=== PATIENT | male | born 1990 | race Asian ===

== ENCOUNTER 2017-12-09 00:44 | Observation (INO) | payer OTHER ==
--- NOTE | 2017-12-09 01:03 | EDPHY ---
H & P Stated Complaint: ABD pain. Time Seen by Provider: 12/09/17 01:05 HPI/ROS: HPI CHIEF COMPLAINT: Abdominal pain HISTORY OF PRESENT ILLNESS: Patient 27-year-old male, is otherwise healthy without any significant medical history denies having any significant abdominal history, presents emergency room nausea but no vomiting and epigastric abdominal pain. Patient reports a burning sensation in his epigastric region. Does not go to his back he has associated nausea with it. He states he initially felt around lunch today after he ate [employer]. He states however he did not feel that bad today. Around 2-3 hours ago developed epigastric worsening discomfort. The pain has gotten intense over the past 2 hr. He denies any lower abdominal pain. Denies chest pain or shortness of breath. The pain does not radiate. He is focally tender in the epigastric region on exam. 8/10 pain Past Medical History: Denies medical history Past Surgical History: Denies surgical history Social History: Denies drugs alcohol tobacco products Family History: Noncontributory ROS REVIEW OF SYSTEMS: A comprehensive 10 point review of systems is otherwise negative aside from elements mentioned in the history of present illness. Exam Constitutional appears uncomfortable, triage nursing summary reviewed, vital signs reviewed, awake/alert. Eyes normal conjunctivae and sclera, EOMI, PERRLA. HENT normal inspection, atraumatic, moist mucus membranes, no epistaxis, neck supple/ no meningismus, no raccoon eyes. Respiratory clear to auscultation bilaterally, normal breath sounds, no respiratory distress, no wheezing. Cardiovascular rate normal, regular rhythm, no murmur, no edema, distal pulses normal. Gastrointestinal tender palpation epigastric region, no rebound, no guarding, normal bowel sounds, no distension, no pulsatile mass. Genitourinary no CVA tenderness. Musculoskeletal no midline vertebral tenderness, full range of motion, no calf swelling, no tenderness of extremities, no meningismus, good pulses, neurovascularly intact. Skin pink, warm, & dry, no rash, skin atraumatic. Neurologic awake, alert and oriented x 3, AAOx3, moves all 4 extremities equally, motor intact, sensory intact, CN II-XII intact, normal cerebellar, normal vision, normal speech. Psychiatric normal mood/affect. Heme/Lymph/Immune no lymphadenopathy. Differential diagnosis includes but is not limited to and in no particular order : Acute pancreatitis, Bowel obstruction, appendicitis, gallbladder disease, diverticulitis, colitis, enteritis, perforated viscus, gastritis, GERD, esophagitis, urinary tract infection, pyelonephritis, kidney stones Medical Decision Making: Plan for this patient IV establishment with IV fluid bolus, IV Dilaudid for pain control, IV Zofran for nausea, check lipase, liver enzymes, blood work, CT scan abdomen pelvis with IV contrast re-evaluate. Re-evaluation: EKG interpretation by me on record in [employer] system. Impression time of EKG 1:12 a.m. Sinus rhythm rate of 94. No acute ischemic change. 0213: CT scan abdomen pelvis with IV contrast called to me by Dr. Borges. Negative for acute inflammatory process. Does have a distended gallbladder but no gallstones. No gallbladder wall thickening on CT. 0214: I did re-evaluate him at this time. Abdomen remained soft. He does tell me that he feels better. He has not any vomiting here. Still has some epigastric discomfort. Patient's EKG is nonischemic. Blood work is reassuring with a normal lipase. Somewhat hold slightly elevated LFTs. CT scan is unrevealing. Will give a GI cocktail and re-evaluate. 0324: Did re-evaluate him he still has ongoing upper abdominal pain. Troponin negative. I have ordered an ultrasound of his right upper quadrant to further evaluate is distended gallbladder on CT. GI cocktail did not improve his pain. I have ordered mg IV Dilaudid. Will re-evaluate. Ultrasound pending. Ultrasound of the gallbladder is unremarkable called to me by Dr. Borges. No evidence of acute cholecystitis. I did reexamine him he still has epigastric right upper quadrant abdominal pain. I have offered him admission and he would like to be admitted the hospital for further pain control further evaluation of his abdominal pain. 0500: I spoke with the hospitalist service Dr. Rosa, who agrees to admit this patient for tonight of observation, ongoing abdominal pain IV fluids. Patient did not for to go home wanted to stay in the hospital for ongoing fluids nausea pain control. I do not have a great explanation for his abdominal pain. I do question if he has cholecystitis however the CT scan and ultrasound are reassuring. He is afebrile. His blood work has been reviewed he does have slightly elevated LFTs and a slight white count. Plan will be for observation pain control nausea control and IV fluids. Source: Patient - Personal History Current Tetanus/Diphtheria Vaccine: Unsure Current Tetanus Diphtheria and Acellular Pertussis (TDAP): Unsure - Medical/Surgical History Hx Asthma: No Hx Chronic Respiratory Disease: No Hx Diabetes: No Hx Cardiac Disease: No Hx Renal Disease: No Hx Cirrhosis: No Hx Alcoholism: No Hx HIV/AIDS: No Hx Splenectomy or Spleen Trauma: No Other PMH: Denies - Social History Smoking Status: Never smoked Constitutional: Initial Vital Signs Temperature (C) 36.8 C 12/09/17 00:47 Heart Rate 104 H 12/09/17 00:47 Respiratory Rate 18 12/09/17 00:47 Blood Pressure 160/104 H 12/09/17 00:47 O2 Sat (%) 92 12/09/17 00:47 O2 Delivery Mode Room Air O2 (L/minute) 2 Allergies/Adverse Reactions: No Known Allergies Allergy (Unverified 12/09/17 00:51) Home Medications: Medication Instructions Recorded NK [No Known Home Meds] 12/09/17 Medical Decision Making - Data Points Laboratory Results: Laboratory Results 12/09/17 01:17 12/09/17 01:17 12/09/17 12/09/17 12/09/17 01:17 01:17 01:17 WBC RBC Hgb Hct MCV MCH MCHC RDW Plt Count MPV Neut % (Auto) Lymph % (Auto) [place] % (Auto) Eos % (Auto) Baso % (Auto) Nucleat RBC Rel Count Absolute Neuts (auto) Absolute Lymphs (auto) Absolute Monos (auto) Absolute Eos (auto) Absolute Basos (auto) Absolute Nucleated RBC Immature Gran % Immature Gran # PT 14.3 SEC SEC (12.0-15.0) INR 1.09 (0.83-1.16) APTT 30.8 SEC SEC (23.0-38.0) Sodium 142 mEq/L mEq/L (135-145) Potassium 3.9 mEq/L mEq/L (3.5-5.2) Chloride 101 mEq/L mEq/L (97-110) Carbon Dioxide 25 mEq/l mEq/l (22-31) Anion Gap 16 mEq/L mEq/L (8-16) BUN 12 mg/dL mg/dL (7-23) Creatinine 0.9 mg/dL mg/dL (0.7-1.3) Estimated GFR > 60 Glucose 138 mg/dL H mg/dL (70-100) Calcium 9.5 mg/dL mg/dL (8.5-10.4) Total Bilirubin 1.3 mg/dL mg/dL (0.1-1.4) Conjugated Bilirubin 0.4 mg/dL mg/dL (0.0-0.5) Unconjugated Bilirubin 0.9 mg/dL mg/dL (0.0-1.1) AST 76 IU/L H IU/L (17-59) ALT 183 IU/L H IU/L (21-72) Alkaline Phosphatase 62 IU/L IU/L (38-126) Troponin I < 0.012 ng/mL ng/mL (0.000-0.034) Total Protein 7.8 g/dL g/dL (6.3-8.2) Albumin 4.4 g/dL g/dL (3.5-5.0) Lipase 80 IU/L IU/L (23-300) 12/09/17 01:17 WBC 9.82 10^3/uL H 10^3/uL (3.80-9.50) RBC 5.33 10^6/uL 10^6/uL (4.40-6.38) Hgb 16.5 g/dL g/dL (13.7-17.5) Hct 45.9 % % (40.0-51.0) MCV 86.1 fL fL (81.5-99.8) MCH 31.0 pg pg (27.9-34.1) MCHC 35.9 g/dL g/dL (32.4-36.7) RDW 11.9 % % (11.5-15.2) Plt Count 254 10^3/uL 10^3/uL (150-400) MPV 8.4 fL L fL (8.7-11.7) Neut % (Auto) 71.7 % % (39.3-74.2) Lymph % (Auto) 20.9 % % (15.0-45.0) [place] % (Auto) 5.5 % % (4.5-13.0) Eos % (Auto) 0.8 % % (0.6-7.6) Baso % (Auto) 0.7 % % (0.3-1.7) Nucleat RBC Rel Count 0.0 % % (0.0-0.2) Absolute Neuts (auto) 7.04 10^3/uL H 10^3/uL (1.70-6.50) Absolute Lymphs (auto) 2.05 10^3/uL 10^3/uL (1.00-3.00) Absolute Monos (auto) 0.54 10^3/uL 10^3/uL (0.30-0.80) Absolute Eos (auto) 0.08 10^3/uL 10^3/uL (0.03-0.40) Absolute Basos (auto) 0.07 10^3/uL 10^3/uL (0.02-0.10) Absolute Nucleated RBC 0.00 10^3/uL 10^3/uL (0-0.01) Immature Gran % 0.4 % % (0.0-1.1) Immature Gran # 0.04 10^3/uL 10^3/uL (0.00-0.10) PT INR APTT Sodium Potassium Chloride Carbon Dioxide Anion Gap BUN Creatinine Estimated GFR Glucose Calcium Total Bilirubin Conjugated Bilirubin Unconjugated Bilirubin AST ALT Alkaline Phosphatase Troponin I Total Protein Albumin Lipase Medications Given: Discontinued Medications Al Hydroxide/Mg Hydroxide (Maalox Susp) 30 ml PO ONCE ONE Stop: 12/09/17 02:16 Last Admin: 12/09/17 02:46 Dose: 30 ml Hydromorphone HCl (Dilaudid) 1 mg IVP EDNOW ONE Stop: 12/09/17 01:08 Last Admin: 12/09/17 01:20 Dose: 1 mg Hydromorphone HCl (Dilaudid) 1 mg IVP EDNOW ONE Stop: 12/09/17 03:24 Last Admin: 12/09/17 03:26 Dose: 1 mg Hydromorphone HCl (Dilaudid) 1 mg IVP EDNOW ONE Stop: 12/09/17 03:24 Last Admin: 12/09/17 03:26 Dose: Not Given Hyoscyamine Sulfate (Levsin, Hyomax-Sl) 0.25 mg PO ONCE ONE Stop: 12/09/17 02:16 Last Admin: 12/09/17 02:45 Dose: 0.25 mg Sodium Chloride (Ns) 1,000 mls @ 0 mls/hr IV EDNOW ONE; Wide Open PRN Reason: Protocol Stop: 12/09/17 01:08 Last Admin: 12/09/17 01:19 Dose: 1,000 mls Lidocaine (Lidocaine 2% Viscous) 15 ml PO ONCE ONE Stop: 12/09/17 02:16 Last Admin: 12/09/17 02:46 Dose: 15 ml Ondansetron HCl (Zofran) 4 mg IVP EDNOW ONE Stop: 12/09/17 01:08 Last Admin: 12/09/17 01:20 Dose: 4 mg Departure - Departure Disposition: [facility] Inpatient Acute Clinical Impression: Abdominal pain Qualifiers: Abdominal location: right upper quadrant Qualified Code(s): R10.11 - Right upper quadrant pain Condition: Fair Referrals: NONE *PRIMARY CARE P,. [Primary Care Provider] - As per Instructions
[2017-12-09] MEDS ORDERED: NS 1,000 ML IV ONE ×2 (01:07→05:00)
[2017-12-09] MEDS ORDERED: ONDANSETRON 4 MG/2 ML VIAL IVP ONE (01:07)
[2017-12-09] MEDS ORDERED: HYDROmorphONE/DILAUDID 1 MG/ML INJ IVP ONE ×3 (01:07→03:23)
--- NOTE | 2017-12-09 01:13 | CPEKG ---
Heart Rate: 94 RR Interval: 638 P-R Interval: 196 QRSD Interval: 90 QT Interval: 344 QTC Interval: 431 P [place]: 12 QRS [place]: 82 T Wave [place]: 13 EKG Severity - NORMAL ECG - EKG Impression: SINUS RHYTHM Electronically Signed By: Logan Meng 09-Dec-2017 06:16:49
[2017-12-09 01:29] LABS: PLATELET COUNT 254 10^3/uL (150-400)
[2017-12-09 01:38] LABS: INR 1.09 (0.83-1.16); PROTIME(PATIENT) 14.3 SEC (12.0-15.0)
[2017-12-09] MEDS ORDERED: IOPAMIDOL (ISOVUE-300) 100 ML BTL ONE (01:46)
[2017-12-09] MEDS ORDERED: LIDOCAINE 2% VISCOUS 15 ML UDCUP PO ONE (02:15)
[2017-12-09] MEDS ORDERED: MAG HYDROX/AL HYDROX/SIMETH 30 ML UDCUP PO ONE (02:15)
[2017-12-09] MEDS ORDERED: HYOSCYAMINE SULFATE 0.125 MG TAB PO ONE (02:15)
[2017-12-09] MEDS ORDERED: LORazepam 2 MG/ML INJ IVP PRN (05:41)
[2017-12-09] MEDS ORDERED: ACETAMINOPHEN 325 MG TAB PO PRN (05:41)
[2017-12-09] MEDS ORDERED: HYDROmorphONE/DILAUDID 1 MG/ML INJ IVP PRN (05:41)
[2017-12-09] MEDS ORDERED: ONDANSETRON 4 MG/2 ML VIAL IVP PRN (05:41)
[2017-12-09] MEDS ORDERED: PANTOPRAZOLE SODIUM 40 MG VIAL IVP ONE (05:45)
[2017-12-09 06:24] VITALS: RESP 18
--- NOTE | 2017-12-09 06:46 | GHP ---
[f rep st] HISTORY AND PHYSICAL DATE OF ADMISSION: 12/09/2017 SOURCE: Patient provides history, appears reliable. Case discussed with ED provider. EMR was mon. CHIEF COMPLAINT: Abdominal pain. HISTORY OF PRESENT ILLNESS: This very pleasant, 27-year-old gentleman with no significant past medic al history presents to the emergency department today with complaints of several hours of nausea and epigastric pain. Patient reports that approximately lunchtime yesterday he had a fatty fast food niraj l, and since that time has had some upset stomach. He subsequently developed some nausea and epigast boni pain which he reports is sharp, constant, and worse with movement or food. Patient has had only limited amounts of club soda and tea since onset of his pain. He has not had any solid food since th at time. He did try to take some Pepto-Bismol at home which did not improve his symptoms. Patient w as increasingly uncomfortable, and so presented to the emergency department for further evaluation. REVIEW OF SYSTEMS: Negative, except as noted above. ALLERGIES: No known drug allergies. MEDICATIONS: None on a regular basis. PAST MEDICAL HISTORY: Patient denies. PAST SURGICAL HISTORY: Negative. FAMILY HISTORY: Patient denies any known family history of gallbladder disease, hypertension, diabet es, CAD. SOCIAL HISTORY: Patient does not smoke, drink, or do drugs. His significant other at bedside. CODE STATUS: Full. PHYSICAL EXAMINATION: VITAL SIGNS: Upon arrival to the ED, blood pressure 160/104, heart rate is 10 4, respiratory rate 18, O2 sat 92% on room air with a temperature 36.8. Vitals currently: Blood pre ssure 136/81, heart rate is 83, respiratory rate 18, pulse ox 96% on room air with temperature 36.6. GENERAL: Patient in no acute distress, but does appear uncomfortable, and lies quite still on the g urney. His significant other bedside. HEAD: Normocephalic, atraumatic. EYES: Extraocular muscles are intact. Pupils equal, round, slightly decreased reactivity to light bilaterally, and symmetric. No scleral icterus or conjunctival injection. ENT: Mucous membranes appear slightly dry. Dentiti on intact. No oropharyngeal erythema or exudates. NECK: Supple. Trachea midline. CV: Regular ra te and rhythm. No murmurs, rubs, or gallops appreciated. RESPIRATORY: Lungs are clear to auscultat ion bilaterally. No wheezes, rales, or rhonchi appreciated. ABDOMEN: Obese, soft. Patient with ge neralized tenderness to palpation and more acutely in the epigastric region. Has a negative Inman s ign. ABDOMEN: Slightly distended, but soft. Hypoactive bowel sounds. : No suprapubic tendernes s to palpation. No Warner catheter in place. EXTREMITIES: Patient without any cyanosis, clubbing, o r edema appreciated. Patient with 2+ pedal pulses. NEURO: Grossly nonfocal. No facial drooping. Moves all extremities. PSYCHIATRIC: Thought process, content, and questions are all appropriate. P atient awake, alert, and oriented x4. LABORATORY STUDIES: WBC is 9.82, H and H 16.5 and 45.9, MCV of 86.1, platelet count is 254, no bands . PT 14.3, INR 1.09, PTT is 30.8. Sodium 142, potassium is 3.9, chloride 101, CO2 is 25, anion gap 16, BUN 12, creatinine 0.9, GFR greater than 60, glucose 138, calcium 9.5, total bili is 1.3, ALT is 183 , AST 76, alk phos is 62. Troponin is negative. Total protein 7.8. Albumin 4.4. Lipase is 80. EKG reviewed myself, showing sinus rhythm in the 90s, slightly prolonged AL interval, nothing acute, QTc 431. CT abdomen/pelvis image report reviewed. Preliminary radiology report is negative. Ultrasound report: Preliminary report reviewed. No gallstones or secondary evidence of cholecystiti s. No gallbladder wall thickening. Slightly dilated. ASSESSMENT AND PLAN: Pleasant, 27-year-old gentleman without significant past medical history presen with complaints of persistent epigastric pain. 1. Abdominal pain. Differential diagnosis including pancreatitis versus gastritis versus ulcer vers us biliary dyskinesia. Patient without any significant family history of gallbladder disease. He is slightly obese, BMI 36.6. CT and ultrasound are negative for any evidence of obstruction or acute c holecystitis. Preliminary report with some possible notation for gallbladder distention. HIDA scan will be ordered. Patient will also have a proton pump inhibitor ordered. He did receive a gastroint estinal cocktail in the emergency department that did not affect his symptoms at all. Patient will r emain n.p.o., and he is amenable to this plan at this time. 2. Transaminitis. No evidence of obstruction, possibly related to fatty liver. Patient without any reported risk factors for hepatitis transmission. Will monitor. 3. Nausea, improved. Zofran will be available p.r.n. 4. Hyperglycemia, mildly elevated in nonfasting. Will continue to monitor. No reported history of diabetes. 5. Fluid, electrolyte, nutrition. Patient will be placed on IV fluids. Electrolytes will be monito red, replace if needed, and patient will be made n.p.o. for plan as above. 6. Prophylaxis. Sequential compression devices. Holding anticoagulation, pending HIDA scan report. 7. COR status is full. DISPOSITION: Patient admitted to observation at this time on the medical floor for pain control and further evaluation of his abdominal pain. /[id number]/MODL
--- NOTE | 2017-12-09 10:26 | HOSPPROG ---
Hospitalist Progress Note Assessment/Plan: Patient is a 7-year-old male with leak get past medical history. He presented the emergency room with several hours of nausea and epigastric pain. Today is my 1st encounter with the patient. Chart reviewed. abdominal pain -ct shows nothing acute -abdominal ultrasound shows fatty liver -to get HIDA scan this morning -pain occurred after eating a hamburger/ ?colicky gall bladder * mild transaminitis -repeat labs with PCP *obesity -he is aware this is an issue *hyperglycemia *fatty liver *Plan: to get hida scan, if stable, will dc today Subjective: Tray said he is feeling much better. Objective: Vital Signs Temp Pulse Resp BP Pulse Ox 36.7 C 95 18 149/95 H 98 12/09/17 07:51 12/09/17 07:51 12/09/17 07:51 12/09/17 08:20 12/09/17 07:51 12/08/17 12/09/17 12/10/17 05:59 05:59 05:59 Intake Total 2000 Balance 2000 PT 14.3 SEC (12.0-15.0) 12/09/17 01:17 INR 1.09 (0.83-1.16) 12/09/17 01:17 - Physical Exam Constitutional: not in pain, obese Eyes: PERRL Ears, Nose, Mouth, Throat: hearing normal Cardiovascular: regular rate and rhythym Respiratory: no respiratory distress Gastrointestinal: normoactive bowel sounds, soft, non-tender abdomen Skin: warm Musculoskeletal: full muscle strength Neurologic: AAOx3 Psychiatric: interacting appropriately ICD10 Worksheet Patient Problems: Problems Problem Status Onset Abdominal pain Acute
[2017-12-09] MEDS ORDERED: PANTOPRAZOLE SODIUM 40 MG TAB PO ONE (11:38)
[2017-12-09 11:42] VITALS: BP 138/78; PULSE 92; TEMP 97.2; O2SAT 91
--- NOTE | 2017-12-09 15:13 | GDS ---
[f rep st] DISCHARGE SUMMARY DISCHARGE DIAGNOSES: 1. Abdominal pain, mostly noted in the epigastric area. 2. Mild transaminitis. 3. Obesity. 4. Hyperglycemia. 5. Fatty liver. 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 He came to the emergency room with complaints of several hours of nausea and epigastric pain. He had lunch and had a fatty fast-food meal. He has also been under stress with school. During his stay, he had a CT of the abdomen that showed no source of his epigastric pain. His liver and spleen are normal in size. There is no biliary dilation. The gallbladder system without evidence of calcified gallstones, gallbladder wall thickening, or pericholecystic edema, or fluid. The pancreas and kidneys look normal. There is no ascites or evidence of obstruction. He had an abdominal ultrasound performed that showed a fatty infiltration of liver. He has a normal gallbladder and also noted that he had obesity. Today, he has tolerated clear liquids, and now is eating a low-fat diet. I suspect some of his pain in the epigastric area is from stress. I gave him a dose of Protonix, which helped. He will be discharged and recommended that he get repeat liver enzymes and followup care. HOSPITAL COURSE PER PROBLEM: 1. Abdominal pain. The CT showed nothing acute. The HIDA scan was canceled just because he has been eating and drinking. He could have also had a colicky gallbladder with eating fatty food. Recommendation is low-fat diet. 2. Mild transaminitis. Recommended to get repeat labs this next week at [facility]. 3. Obesity. He is aware this is impacting his health. 4. Hyperglycemia, mild. 5. Fatty liver. Recommendation is for him to lose weight to help with his hypertension, as well as this. DISCHARGE CONDITION: Stable. Blood pressure is 138/78, heart rate is 92, respiratory rate is 18, O2 sats on room air 91%, temperature 36.2 Celsius. MEDICATIONS AT DISCHARGE: Please see the EMR. DISCHARGE INSTRUCTIONS: 1. To buy Prilosec [id number], and take it for the next 14 days. 2. To stay on a low-fat diet. 3. Recommending weight loss. 4. Repeat LFTs in 1 week. /[id number]/MODL MTDD
== END 2017-12-09 15:50 | disposition home or self-care (01) ==
LOC: F3E 05:51
PROVIDERS: ADMIT Family Medicine; ATTEND Internal Medicine
DX: R10.13 Epigastric pain (principal); R74.0 Nonspecific elevation of levels of transaminase and lactic acid dehydrogenase [LDH]; E66.9 Obesity, unspecified; R73.9 Hyperglycemia, unspecified; K76.0 Fatty (change of) liver, not elsewhere classified; Z68.36 Body mass index [BMI] 36.0-36.9, adult
CPT/HCPCS: 74177; 76705; 93005; G0378; J1170; J2405; Q9967